=== PATIENT | male | born 1955 | race Asian ===

== ENCOUNTER 2017-05-30 18:46 | Emergency (ER) | payer BC ==
[~2017-05-30] VITALS: Ht 172.7 cm; Wt 77.1 kg
[2017-05-30 18:56] VITALS: BP_SYST 167
[2017-05-30] MEDS ORDERED: BACITRACIN 1 GM OINT TP ONE (20:45)
[2017-05-30] MEDS ORDERED: LIDOCAINE/EPI 1% 1:100000 20 ML VIAL IJ ONE ×2 (20:45)
[2017-05-30] MEDS ORDERED: DIPH-TET-PERTUS Vaccine 0.5 ML VIAL (ADACEL) IM ONE (20:45)
[2017-05-30 22:21] VITALS: BP_SYST 149
== END 2017-05-30 22:21 | disposition home or self-care (01) ==
LOC: SED 18:46
DX: S01.81XA Laceration without foreign body of other part of head, initial encounter (principal); K08.89 Other specified disorders of teeth and supporting structures; W22.8XXA Striking against or struck by other objects, initial encounter; Y93.89 Activity, other specified; Y92.89 Other specified places as the place of occurrence of the external cause; Y99.8 Other external cause status
CPT/HCPCS: 90715; 99283

== ENCOUNTER 2017-06-08 14:40 | Emergency (ER) | payer BC ==
[~2017-06-08] VITALS: Ht 172.7 cm; Wt 76.2 kg
[2017-06-08 15:10] VITALS: BP_SYST 131
--- NOTE | 2017-06-08 15:15 | NUR ---
[facility] BACK TO [facility], REPORT GIVEN TO SERG
--- NOTE | 2017-06-08 15:20 | NUR ---
MARIA R staton at bedside examining patient.
--- NOTE | 2017-06-08 15:25 | NUR ---
Pt presents to ED for suture removal. Wound has mild erythema and warm to touch. Suture removed pt tolerated well.
[2017-06-08] MEDS ORDERED: BACITRACIN 1 GM OINT TP ONE (15:30)
--- NOTE | 2017-06-08 15:30 | NUR ---
bacitricin applied.Pt tolerated well.
[2017-06-08 15:40] VITALS: BP_SYST 131
--- NOTE | 2017-06-08 15:40 | NUR ---
Patient given written and verbal discharge instructions and verbalizes understanding. ER MD discussed with patient the results and treatment provided. Patient in stable condition. ID arm band removed. IV catheter removed intact and dressing applied, no active bleeding. Rx of keflex,bactrim ds,bacitricin given. Patient educated on pain management and to follow up with PMD. Pain Scale 0. Opportunity for questions provided and answered.
== END 2017-06-08 15:40 | disposition home or self-care (01) ==
LOC: SED 14:40
DX: S01.81XD Laceration without foreign body of other part of head, subsequent encounter (principal); R03.0 Elevated blood-pressure reading, without diagnosis of hypertension; W20.8XXD Other cause of strike by thrown, projected or falling object, subsequent encounter
CPT/HCPCS: 99283